=== PATIENT | male | born 1990 | race Hispanic/Latino ===

== ENCOUNTER 2020-09-26 09:01 | Emergency (ER) | payer OTHER ==
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
[2020-09-26] MEDS ORDERED: IBUPROFEN 800 MG TAB PO ONE (13:07)
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
[2020-09-26 14:44] VITALS: BP 109/69
== END 2020-09-26 14:53 | disposition home or self-care (01) ==
LOC: ED 09:01
DX: S39.012A Strain of muscle, fascia and tendon of lower back, initial encounter (principal); S16.1XXA Strain of muscle, fascia and tendon at neck level, initial encounter; Z79.899 Other long term (current) drug therapy; V49.49XA Driver injured in collision with other motor vehicles in traffic accident, initial encounter; Y92.410 Unspecified street and highway as the place of occurrence of the external cause; Y93.89 Activity, other specified; Y99.8 Other external cause status
CPT/HCPCS: 72040; 72100